=== PATIENT | male | born 1940 | race Caucasian/White ===

== ENCOUNTER 2017-11-26 16:52 | Observation (INO) ==
--- NOTE | 2017-11-26 18:08 | ED ---
HPI General Chief complaint: Chest Pain Stated complaint: Chest Pain Time Seen by Provider: 11/26/17 17:40 History of Present Illness HPI narrative: This is a 76-year-old male who presents via EMS for evaluation of chest pain. He reports that he has had left proximal arm pain for the past 2 -3 days. Today at 3 PM he was cleaning his air conditioner when he developed a substernal chest tightness, nausea, dizziness and diaphoresis. Symptoms lasted for approximately 30 minutes, resolved after paramedics provided him with 324 mg of aspirin and 2 sublingual nitro. currently asymptomatic in regards to the chest pain. He does report that he has had some intermittent diarrhea for the past few weeks and some crampy lower abdominal pain. He does have a history of diverticulosis. He reports that he had one episode today of bright red blood per rectum when he was wiping with his toilet paper. He denies fevers, chills. Symptoms are mild to moderate. He reports that he had a normal cardiac catheterization 6 years ago in [place]. He was scheduled to have a stress test 3 years ago but he canceled it. No other complaints at this time. Related Data Home Medications Medication Instructions Recorded Confirmed alprazolam [Xanax] 0.5 mg PO HS 11/26/17 11/26/17 aspirin 81 mg PO DAILY 11/26/17 11/26/17 carvedilol [Coreg] 6.25 mg PO BID 11/26/17 11/26/17 omega 1-fhl-aoc-fish oil [Fish Oil] 2 cap PO BID 11/26/17 11/26/17 Allergies Allergy/AdvReac Type Severity Reaction Status Date / Time sulfamethoxazole Allergy allergy Verified 11/26/17 17:50 [From Bactrim] trimethoprim [From Bactrim] Allergy allergy Verified 11/26/17 17:50 Review of Systems ROS: all other systems reviewed are negative [facility] Medical History Medical History Patient denies medical problems (Acute) Surgical History Surgical History No history of previous surgery (Acute) Social History Social History Substance History: No History of Abuse Second Hand Smoke Exposure: No Smoking Status: Former smoker How Often Do You Have a Drink Containing Alcohol: Never Recent Travel in [facility] within the Last 8 Weeks: No Recent Out of Country Travel within the Last 8 Weeks: No Immunization History Tetanus Immunization: >5 Years Exam Narrative Exam Narrative: GENERAL: Pleasant well-developed well-nourished male no acute distress SKIN: Warm and dry. HEAD: Atraumatic. Normocephalic. EYES: Pupils equal and round. No scleral icterus. No injection or drainage. ENT: No nasal bleeding or discharge. Mucous membranes pink and moist. NECK: Trachea midline. No JVD. CARDIOVASCULAR: Regular rate and rhythm. No murmur appreciated. RESPIRATORY: No accessory muscle use. Clear to auscultation. Breath sounds equal bilaterally. GASTROINTESTINAL: Abdomen soft, to palpation in the lower quadrants without guarding. Rectal examination reveals no evidence of external hemorrhoid. He does have faintly Hemoccult positive mucousy stool. MUSCULOSKELETAL: No obvious deformities. No clubbing. No cyanosis. No edema. NEUROLOGICAL: Awake and alert. No obvious cranial nerve deficits. Motor grossly within normal limits. Normal speech. Procedures Hemaprompt Stool Procedural Steps Taken: specimen placed in appropriate test area, developer placed on specimen and control areas and controls appropriately positive and negative Hemaprompt Stool Result: positive Course Initial Documented Vital Signs Temperature 98.1 F 11/26/17 17:36 Pulse Rate 73 11/26/17 17:36 Respiratory Rate 18 11/26/17 17:36 Blood Pressure 126/64 11/26/17 17:36 Pulse Oximetry 97 11/26/17 17:36 Last Documented Vital Signs Temperature 98.1 F 11/26/17 17:36 Pulse Rate 69 11/26/17 18:46 Respiratory Rate 18 11/26/17 18:46 Blood Pressure 130/69 11/26/17 18:46 Pulse Oximetry 98 11/26/17 18:46 Clinical Decision Support HEART Score Questions History: Moderately suspicious EKG: Non-specific repolarization disturbance Age: 65 years+ Risk Factors: 3 or more Risk Factors or Hx of Atherosclerotic Disease Initial Troponin: Normal Limit Heart Score HEART Score: 6 Medical Decision Making SHANNA Attestation SHANNA supervised visit: Yes Attestation: I was present with the advanced practitioner during the management of this patient. I discussed the case with the advanced practitioner and agree with the findings and plan as documented in their note except as noted below. 76yM brought in by EMS for chest pain. The patient reports that he's been having "aching" left upper arm pain for the past 3 days, but this afternoon began to have substernal chest "pressure" as well, associated with dizziness, diaphoresis, nausea, and shortness of breath. He also reports diarrhea and "cramping" lower abdominal pain x several weeks, noted some blood after moving his bowels this morning. He has a history of diverticulitis, HTN, dyslipidemia, and extensive former smoking history. Family history is significant for father and brother with fatal MIs in their late 40s/ early 50s. He had a cardiac cath in [place] 6 years ago (no intervention) and reports that he was supposed to have a stress test 3 years ago but did not follow up. He has no significant abnormalities on exam. He is guaiac (+). Plan is to check labs, CT abd/ pelvis, CXR/ X-ray left arm, and likely chest pain center vs hospitalist obs depending on results. [facility] Narrative Medical decision making narrative: The patient was placed on ECG monitoring pulse oximetry. A 12 EKG was obtained. Lab work, chest x-ray, CT abdomen pelvis ordered. Lab work and imaging studies have been reviewed. CT abdomen pelvis reveals no acute abnormalities. Hemoccult was positive. At this point time the plan will be to admit the patient for further evaluation of chest pain and GI bleed. He is agreeable. Medical Screen Exam Complete: Yes Emergency Medical Condition: Yes Differential Diagnosis Differential Diagnosis: Angina, acute coronary syndrome, pneumothorax, pericarditis, myocarditis, aortic dissection, colitis, internal hemorrhoid, diverticulitis, anal fissure Lab Data Result diagrams: 11/26/17 18:05 11/26/17 18:05 Lab Results 11/26/17 11/26/17 11/26/17 Range/Units 17:38 18:05 18:05 WBC 7.4 (4.0-11.0) th/mm3 RBC 4.32 L (4.50-5.90) mil/mm3 Hgb 12.8 L (13.0-17.0) gm/dL Hct 37.8 L (39.0-51.0) % MCV 87.5 (80.0-100.0) fL MCH 29.5 (27.0-34.0) pg MCHC 33.7 (32.0-36.0) % RDW 14.3 (11.6-17.2) % Plt Count 283 (150-450) th/mm3 MPV 7.4 (7.0-11.0) fL Neut % (Auto) 63.8 (16.0-70.0) % Lymph % (Auto) 19.0 (9.0-44.0) % Cameron % (Auto) 9.4 H (0.0-8.0) % Eos % (Auto) 6.9 H (0.0-4.0) % Baso % (Auto) 0.9 (0.0-2.0) % Neut # (Auto) 4.7 (1.8-7.7) th/mm3 Lymph # (Auto) 1.4 (1.0-4.8) th/mm3 Cameron # (Auto) 0.7 (0.0-0.9) th/mm3 Eos # (Auto) 0.5 H (0.0-0.4) th/mm3 Baso # (Auto) 0.1 (0.0-0.2) th/mm3 WBC Differential . Differential Comment Auto diff final PT (9.8-11.6) sec INR Ratio APTT (24.3-30.1) sec Sodium 139 (136-145) meq/L Potassium 4.3 (3.5-5.1) meq/L Chloride 103 (98-107) meq/L Carbon Dioxide 29.8 (21.0-32.0) meq/L Anion Gap 6 (5-15) meq/L BUN 16 (7-18) mg/dL Creatinine 1.04 (0.60-1.30) mg/dL Estimated GFR 69 L (>89) mL/min Random Glucose 93 (74-106) mg/dL Calcium 9.1 (8.5-10.1) mg/dL Magnesium 2.0 (1.5-2.5) mg/dL Total Bilirubin 0.3 (0.2-1.0) mg/dL AST 28 (15-37) U/L ALT 24 (12-78) U/L Alkaline Phosphatase 81 (45-117) U/L Total Creatine Kinase 158 (39-308) U/L CK-MB (CK-2) 2.6 (0.5-3.6) ng/mL Troponin I Less than 0.02 L (0.02-0.05) ng/mL Total Protein 7.2 (6.4-8.2) g/dL Albumin 3.6 (3.4-5.0) g/dL Urine Color Yellow (Yellw/Straw) Urine Clarity Hazy H (Clear) Urine pH 7.0 (5.0-8.5) Ur Specific [place] 1.016 (1.002-1.035) Urine Protein Negative (Neg-Trace) mg/dL Urine Glucose (UA) Negative (Negative) mg/dL Urine Ketones Trace H (Negative) mg/dL Urine Occult Blood Small H (Negative) Urine Nitrate Negative (Negative) Urine Bilirubin Negative (Negative) Urine Urobilinogen Less than 2 (Less than 2) mg/dL Ur Leukocyte Esterase Negative (Negative) Urine RBC 15 H (0-3) /hpf Urine WBC 3 (0-5) /hpf Micro UA Comment Culture not ind Ur Microscopic Review Not Reportable Urine Culture Comments Culture not ind 11/26/17 Range/Units 18:05 WBC (4.0-11.0) th/mm3 RBC (4.50-5.90) mil/mm3 Hgb (13.0-17.0) gm/dL Hct (39.0-51.0) % MCV (80.0-100.0) fL MCH (27.0-34.0) pg MCHC (32.0-36.0) % RDW (11.6-17.2) % Plt Count (150-450) th/mm3 MPV (7.0-11.0) fL Neut % (Auto) (16.0-70.0) % Lymph % (Auto) (9.0-44.0) % Cameron % (Auto) (0.0-8.0) % Eos % (Auto) (0.0-4.0) % Baso % (Auto) (0.0-2.0) % Neut # (Auto) (1.8-7.7) th/mm3 Lymph # (Auto) (1.0-4.8) th/mm3 Cameron # (Auto) (0.0-0.9) th/mm3 Eos # (Auto) (0.0-0.4) th/mm3 Baso # (Auto) (0.0-0.2) th/mm3 WBC Differential Differential Comment PT 10.0 (9.8-11.6) sec INR 1.0 Ratio APTT 26.3 (24.3-30.1) sec Sodium (136-145) meq/L Potassium (3.5-5.1) meq/L Chloride (98-107) meq/L Carbon Dioxide (21.0-32.0) meq/L Anion Gap (5-15) meq/L BUN (7-18) mg/dL Creatinine (0.60-1.30) mg/dL Estimated GFR (>89) mL/min Random Glucose (74-106) mg/dL Calcium (8.5-10.1) mg/dL Magnesium (1.5-2.5) mg/dL Total Bilirubin (0.2-1.0) mg/dL AST (15-37) U/L ALT (12-78) U/L Alkaline Phosphatase (45-117) U/L Total Creatine Kinase (39-308) U/L CK-MB (CK-2) (0.5-3.6) ng/mL Troponin I (0.02-0.05) ng/mL Total Protein (6.4-8.2) g/dL Albumin (3.4-5.0) g/dL Urine Color (Yellw/Straw) Urine Clarity (Clear) Urine pH (5.0-8.5) Ur Specific [place] (1.002-1.035) Urine Protein (Neg-Trace) mg/dL Urine Glucose (UA) (Negative) mg/dL Urine Ketones (Negative) mg/dL Urine Occult Blood (Negative) Urine Nitrate (Negative) Urine Bilirubin (Negative) Urine Urobilinogen (Less than 2) mg/dL Ur Leukocyte Esterase (Negative) Urine RBC (0-3) /hpf Urine WBC (0-5) /hpf Micro UA Comment Ur Microscopic Review Urine Culture Comments Imaging Data Radiologist's impression: Chest X-Ray 11/26/17 17:50 CONCLUSION: 1. Hyperinflation with no acute infiltrate. 2. 1.3 cm nodular density projecting just to the left of the heart border I believe represents a nipple shadow. Repeat images of the chest with nipple markers could be performed for confirmation if clinically warranted. 3. Stable degenerative spurring of the dorsal spine. Humerus X-Ray 11/26/17 17:50 CONCLUSION: No evidence of recent bony injury. Abdomen/Pelvis CT 11/26/17 18:00 CONCLUSION: 1. No acute CT abnormality in the abdomen or pelvis. 2. Mild sigmoid diverticulosis without definitive evidence for diverticulitis. 3. 1 cm nonobstructing calyceal calculus in the inferior pole of the left kidney. 4. Multiple bilateral subcentimeter hypodense cystic lesions in the kidneys which are too small to fully characterize. 5. Small fat-containing periumbilical hernia. 6. 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 ECG Data Attestation: I personally reviewed and interpreted this ECG as follows: Interpretation: Rate: 63 BPM Rhythm: Sinus [place]: Normal Intervals: Normal intervals, no blocks, QTc 370 ms Q waves: III, aVF T waves: Upright, no inversions ST segments: No elevations or depressions Impression: Non-specific EKG, inferior wall Q waves, no previous EKG available for comparison. Discharge Plan Discharge Disposition Patient Disposition: 30 Still Patient Discharge Condition Condition: Stable Discharge Details Diagnosis: Chest pain, GI bleed Physicians Team ED Provider: Cheri López ED Midlevel Provider: Adolph Monique Primary Care Provider: Ryne Vallecillo Attending Provider: Mckenna Mccray Status ED Status: Admitted Observation Patient
--- NOTE | 2017-11-26 18:44 | XR ---
EXAM DATE: 11/26/2017 5:50 PM EDT AGE/SEX: 76 years / Male INDICATIONS: Left humerus pain with no known injury. CLINICAL DATA: This is the patient's initial encounter. Patient reports that signs and symptoms have been present for 3 days and indicates a pain score of 6/10. MEDICAL/SURGICAL HISTORY: None. None. COMPARISON: No prior exams available for comparison. FINDINGS: Bony structures are intact and in normal alignment. Osseous density is normal. Soft tissues are unre markable. No radiopaque foreign bodies seen. CONCLUSION: No evidence of recent bony injury. Electronically signed by: Mikael Howard MD 11/26/2017 6:43 PM EDT
--- NOTE | 2017-11-26 18:52 | XR ---
EXAM DATE: 11/26/2017 5:50 PM EDT AGE/SEX: 76 years / Male INDICATIONS: Chest pain and short of breath. CLINICAL DATA: This is the patient's initial encounter. Patient reports that signs and symptoms have been present for 3 days and indicates a pain score of 1/10. MEDICAL/SURGICAL HISTORY: None. Coronary artery stent. COMPARISON: POI, XR CHEST PA AND LAT, 10/20/2014. . FINDINGS: A single AP view of the chest demonstrates the lungs to be symmetrically hyper aerated without eviden ce of infiltrate or effusion. Questionable 1.3 cm nodular density projecting just to the left of the heart border may represent an asymmetric nipple shadow. I believe this is faintly identified previou sly. The cardiomediastinal contours are unremarkable. Osseous structures are intact with some degene rative spurring of the dorsal spine. CONCLUSION: 1. Hyperinflation with no acute infiltrate. 2. 1.3 cm nodular density projecting just to the left of the heart border I believe represents a nip ple shadow. Repeat images of the chest with nipple markers could be performed for confirmation if cli nically warranted. 3. Stable degenerative spurring of the dorsal spine. Electronically signed by: Mikael Howard MD 11/26/2017 6:51 PM EDT
[2017-11-26 18:56] LABS: Baso # (Auto) 0.1 th/mm3 (0.0-0.2); Baso % (Auto) 0.9 % (0.0-2.0); Eos # (Auto) 0.5 th/mm3 (0.0-0.4); Eos % (Auto) 6.9 % (0.0-4.0); Hematocrit 37.8 % (39.0-51.0); Hemoglobin 12.8 gm/dL (13.0-17.0); Lymph # (Auto) 1.4 th/mm3 (1.0-4.8); Mean Corpuscular HGB Conc 33.7 % (32.0-36.0); Mean Corpuscular Hemoglobin 29.5 pg (27.0-34.0); Mean Corpuscular Volume 87.5 fL (80.0-100.0); Mean Platelet Volume 7.4 fL (7.0-11.0); Mono # (Auto) 0.7 th/mm3 (0.0-0.9); Mono % (Auto) 9.4 % (0.0-8.0); Neut # (Auto) 4.7 th/mm3 (1.8-7.7); Neut % (Auto) 63.8 % (16.0-70.0); Platelet Count 283 th/mm3 (150-450); Red Blood Count 4.32 mil/mm3 (4.50-5.90); Red Cell Distribution Width 14.3 % (11.6-17.2); White Blood Count 7.4 th/mm3 (4.0-11.0)
[2017-11-26 19:12] LABS: Activated Partial Thrombo Time 26.3 sec (24.3-30.1)
[2017-11-26 19:16] LABS: Alanine Aminotransferase 24 U/L (12-78)
[2017-11-26 19:20] LABS: Alkaline Phosphatase 81 U/L (45-117); Creatine Kinase 158 U/L (39-308); Total Protein 7.2 g/dL (6.4-8.2)
[2017-11-26 19:25] LABS: Bilirubin,Urine Negative (Negative); Clarity,Urine Hazy (Clear); Color,Urine Yellow (Yellw/Straw); Glucose,Urine (UA) Negative (Negative); Leukocyte Esterase,Urine Negative (Negative); Nitrite,Urine Negative (Negative); Specific Gravity,Urine 1.016 (1.002-1.035)
[2017-11-26 19:32] LABS: Creatine Kinase MB 2.6 ng/mL (0.5-3.6)
[2017-11-26 19:40] LABS: Albumin 3.6 g/dL (3.4-5.0); Anion Gap 6 meq/L (5-15); Aspartate Aminotransferase 28 U/L (15-37); Blood Urea Nitrogen 16 mg/dL (7-18); Calcium 9.1 mg/dL (8.5-10.1); Carbon Dioxide 29.8 meq/L (21.0-32.0); Chloride 103 meq/L (98-107); Glomerular Filtration Rate 69 mL/min (>89); Glucose,Random 93 mg/dL (74-106); Potassium 4.3 meq/L (3.5-5.1); Sodium 139 meq/L (136-145)
--- NOTE | 2017-11-26 20:53 | CT ---
EXAM DATE: 11/26/2017 7:49 PM EDT AGE/SEX: 76 years / Male INDICATIONS: Left lower abdomen pain today. CLINICAL DATA: This is the patient's initial encounter. Patient reports that signs and symptoms have been present for 1 day and indicates a pain score of 5/10. MEDICAL/SURGICAL HISTORY: Diverticulosis. None. ORAL CONTRAST: No oral contrast ingested. RADIATION DOSE: 8.45 CTDI (mGy) COMPARISON: No prior exams available for comparison. TECHNIQUE: Multiple contiguous axial images were obtained through the abdomen and pelvis following b olus infusion of 98 ml Omnipaque 350 (iohexol) nonionic water-soluble contrast as a single exam dos e. No oral contrast ingested. Using automated exposure control and adjustment of the mA and/or kV ac cording to patient size, radiation dose was kept as low as reasonably achievable to obtain optimal di agnostic quality images. DICOM format image data is available electronically for review and comparis on. FINDINGS: LOWER LUNGS: Minimal bibasal atelectasis/scarring. LIVER: The liver has a homogeneous density without space-occupying lesion. There is no dilation of t he biliary tree. SPLEEN: Homogeneous density without enlargement. PANCREAS: Unremarkable without mass or calcification. KIDNEYS: Kidneys demonstrate symmetrical enhancement. There are small subcentimeter bilateral hypode nse cystic lesions which are too small to fully characterize. There is a 1.5 cm cyst in the posterior inferior pole the right kidney. There is a 1 cm calyceal calculus in the inferior pole the left kidn ey. There is no hydronephrosis. ADRENAL GLANDS: Unremarkable. AORTA: Yovana-aneurysmal. BOWEL/MESENTERY: Mild sigmoid diverticulosis without significant inflammatory change to suggest dive rticulitis. Bowel otherwise appears unremarkable. No dilated loops of bowel. No free fluid or drainab le fluid collections. No pneumatosis or free air. ABDOMINAL WALL: Very small fat-containing periumbilical hernia. RETROPERITONEUM: No evidence of adenopathy in the retrocrural, para-aortic, or deep pelvic regions. BLADDER: Contours are smooth. REPRODUCTIVE: No abnormal masses or calcifications seen. BONY STRUCTURES: Multilevel degenerative spondylosis of the lower lumbar spine. CONCLUSION: 1. No acute CT abnormality in the abdomen or pelvis. 2. Mild sigmoid diverticulosis without definitive evidence for diverticulitis. 3. 1 cm nonobstructing calyceal calculus in the inferior pole of the left kidney. 4. Multiple bilateral subcentimeter hypodense cystic lesions in the kidneys which are too small to f ully characterize. 5. Small fat-containing periumbilical hernia. 6. 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 Electronically signed by: Damon Reynolds MD 11/26/2017 8:52 PM EDT
--- NOTE | 2017-11-26 22:29 | P.HP ---
History of Present Illness Service: [facility] Primary Care Physician: Ryne Vallecillo MD History of Present Illness: 76-year-old male with a past medical history significant for diverticulosis, IBS and history of melanoma presents to the emergency department for evaluation of chest pain. The patient reports that for the past 3 days he has had left upper extremity pain and this afternoon while he was doing chores he noted a chest tightness with associated nausea and dizziness. He describes the chest tightness is substernal and he states it felt as though he had a "mainspring fabrication supervisor the middle of his chest." The patient also complains of bright red blood per rectum this morning and was Hemoccult positive in the ED. He has a history of chronic hemorrhoids and believes this is where the blood is coming from. The patient denies any shortness of breath. No lateralizing signs/symptoms. No fever/chills. Review of Systems All other systems reviewed negative except as stated in HPI PMFSH - History History Provided By: Patient - Medical History Medical History: Medical History (Last Updated 11/26/17 @ 22:24 by Mckenna Mccray MD) Diverticulosis History of melanoma Irritable bowel syndrome - Surgical History Surgical History: Surgical History (Last Updated 11/26/17 @ 22:24 by Mckenna Mccray MD) History of cardiac catheterization - Family History Family History: Family History (Last Updated 11/26/17 @ 22:24 by Mckenna Mccray MD) Other Coronary artery disease - Tobacco History Second Hand Smoke Exposure: No Smoking Status: Former smoker - Alcohol History How Often Do You Have a Drink Containing Alcohol: Never - Substance Use History Substance History: No History of Abuse - Travel History Recent Travel in the [place] Within the Last 8 Weeks: No Recent Travel Out of the Country Within the Last 8 Weeks: No - Immunization History Tetanus Immunization: >5 Years Medications and Allergies Active Medications: Active Medications Alprazolam (Xanax) 0.5 mg PO HS DEEPIKA Aspirin (Aspirin Chew) 81 mg PO DAILY DEEPIKA Carvedilol (Coreg) 6.25 mg PO BID DEEPIKA Ondansetron HCl (Zofran Inj) 4 mg IV.PUSH Q6H PRN PRN Reason: NAUSEA OR VOMITING Pantoprazole Sodium (Protonix Inj) 40 mg IV.PUSH Q12H DEEPIKA Sodium Chloride (Ns Flush) 2 ml IV.FLUSH UNSCH PRN PRN Reason: FLUSH AFTER USING IV ACCESS Allergies Allergy/AdvReac Type Severity Reaction Status Date / Time sulfamethoxazole Allergy allergy Verified 11/26/17 17:50 [From Bactrim] trimethoprim [From Bactrim] Allergy allergy Verified 11/26/17 17:50 Home Medications Medication Instructions Recorded Confirmed Type alprazolam [Xanax] 0.5 mg PO HS 11/26/17 11/26/17 History aspirin 81 mg PO DAILY 11/26/17 11/26/17 History carvedilol [Coreg] 6.25 mg PO BID 11/26/17 11/26/17 History omega 6-lnt-utt-fish oil [Fish Oil] 2 cap PO BID 11/26/17 11/26/17 History Exam Vital signs: Vital Signs 11/26/17 17:36 11/26/17 17:56 11/26/17 18:46 Temperature 98.1 F Pulse Rate 73 65 69 Respiratory Rate 18 18 Blood Pressure 126/64 130/69 Pulse Oximetry 97 97 98 Intake & Output 11/26/17 11/26/17 11/27/17 06:59 18:59 06:59 Weight 79.379 kg Narrative: Gen.: No acute distress Head: Normocephalic. Atraumatic. EENT: Pupils equal round and reactive to light. Nose without drainage. Airway intact. Throat without injection. Cardiovascular: Regular rate and rhythm. No murmurs, rubs or gallops. Respiratory: Lungs clear to auscultation bilaterally. No wheezes or rhonchi. Abdomen: Soft, nontender, nondistended. No peritoneal signs. Musculoskeletal: No gross deformities. No edema. Skin: No obvious rashes or erythema. Neuro: Sensory and motor grossly intact. Cranial nerves II through XII grossly intact. Results - Labs CBC & Chem 7: 11/26/17 18:05 11/26/17 18:05 Labs: Laboratory Results - last 24 hr 11/26/17 11/26/17 11/26/17 17:38 18:05 18:05 WBC 7.4 RBC 4.32 L Hgb 12.8 L Hct 37.8 L MCV 87.5 MCH 29.5 MCHC 33.7 RDW 14.3 Plt Count 283 MPV 7.4 Neut % (Auto) 63.8 Lymph % (Auto) 19.0 [place] % (Auto) 9.4 H Eos % (Auto) 6.9 H Baso % (Auto) 0.9 Neut # (Auto) 4.7 Lymph # (Auto) 1.4 [place] # (Auto) 0.7 Eos # (Auto) 0.5 H Baso # (Auto) 0.1 WBC Differential . Differential Comment Auto diff final PT INR APTT Sodium 139 Potassium 4.3 Chloride 103 Carbon Dioxide 29.8 Anion Gap 6 BUN 16 Creatinine 1.04 Estimated GFR 69 L Random Glucose 93 Calcium 9.1 Magnesium 2.0 Total Bilirubin 0.3 AST 28 ALT 24 Alkaline Phosphatase 81 Total Creatine Kinase 158 CK-MB (CK-2) 2.6 Troponin I Less than 0.02 L Total Protein 7.2 Albumin 3.6 Urine Color Yellow Urine Clarity Hazy H Urine pH 7.0 Ur Specific [place] 1.016 Urine Protein Negative Urine Glucose (UA) Negative Urine Ketones Trace H Urine Occult Blood Small H Urine Nitrate Negative Urine Bilirubin Negative Urine Urobilinogen Less than 2 Ur Leukocyte Esterase Negative Urine RBC 15 H Urine WBC 3 Micro UA Comment Culture not ind Ur Microscopic Review Not Reportable Urine Culture Comments Culture not ind 11/26/17 18:05 WBC RBC Hgb Hct MCV MCH MCHC RDW Plt Count MPV Neut % (Auto) Lymph % (Auto) [place] % (Auto) Eos % (Auto) Baso % (Auto) Neut # (Auto) Lymph # (Auto) [place] # (Auto) Eos # (Auto) Baso # (Auto) WBC Differential Differential Comment PT 10.0 INR 1.0 APTT 26.3 Sodium Potassium Chloride Carbon Dioxide Anion Gap BUN Creatinine Estimated GFR Random Glucose Calcium Magnesium Total Bilirubin AST ALT Alkaline Phosphatase Total Creatine Kinase CK-MB (CK-2) Troponin I Total Protein Albumin Urine Color Urine Clarity Urine pH Ur Specific [place] Urine Protein Urine Glucose (UA) Urine Ketones Urine Occult Blood Urine Nitrate Urine Bilirubin Urine Urobilinogen Ur Leukocyte Esterase Urine RBC Urine WBC Micro UA Comment Ur Microscopic Review Urine Culture Comments - Imaging Impressions Chest X-Ray 11/26/17 17:50 CONCLUSION: 1. Hyperinflation with no acute infiltrate. 2. 1.3 cm nodular density projecting just to the left of the heart border I believe represents a nipple shadow. Repeat images of the chest with nipple markers could be performed for confirmation if clinically warranted. 3. Stable degenerative spurring of the dorsal spine. Humerus X-Ray 11/26/17 17:50 CONCLUSION: No evidence of recent bony injury. Abdomen/Pelvis CT 11/26/17 18:00 CONCLUSION: 1. No acute CT abnormality in the abdomen or pelvis. 2. Mild sigmoid diverticulosis without definitive evidence for diverticulitis. 3. 1 cm nonobstructing calyceal calculus in the inferior pole of the left kidney. 4. Multiple bilateral subcentimeter hypodense cystic lesions in the kidneys which are too small to fully characterize. 5. Small fat-containing periumbilical hernia. 6. 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 Caprini VTE Risk Assessment Caprini VTE Risk Assessment: Moderate/High Risk (score >= 2) Caprini Risk Assessment Model: Point Value = 1 Point Value = 2 Point Value = 3 Point Value = 5 Age 41-60 Minor surgery BMI > 25 kg/m2 Swollen legs Varicose veins or History of unexplained or recurrent spontaneous Oral contraceptives or hormone replacement Sepsis (< 1 month) Serious lung disease, including pneumonia (< 1 month) Abnormal pulmonary function Acute myocardial infarction Congestive heart failure (< 1 month) History of inflammatory bowel disease Medical patient at bed rest Age 61-74 Arthroscopic surgery Major open surgery (> 45 min) Laparoscopic surgery (> 45 min) Malignancy Confined to bed (> 72 hours) Immobilizing plaster cast Central venous access Age >= 75 History of VTE Family history of VTE Factor V Leiden Prothrombin [id number] Lupus anticoagulant Anticardiolipin antibodies Elevated serum homocysteine Heparin-induced thrombocytopenia Other congenital or acquired thrombophilia Stroke (< 1 month) Elective arthroplasty Hip, pelvis, or leg fracture Acute spinal cord injury (< 1 month) Prophylaxis Regimen: Total Risk Factor Score Risk Level Prophylaxis Regimen 0-1 Low Early ambulation 2 Moderate Order ONE of the following: *Sequential Compression Device (SCD) *Heparin 5000 units SQ BID 3-4 Higher Order ONE of the following medications: *Heparin 5000 units SQ TID *Enoxaparin/Lovenox 40 mg SQ daily (WT < 150 kg, CrCl > 30 mL/min) *Enoxaparin/Lovenox 30 mg SQ daily (WT < 150 kg, CrCl > 10-29 mL/min) *Enoxaparin/Lovenox 30 mg SQ BID (WT < 150 kg, CrCl > 30 mL/min) AND/OR *Sequential Compression Device (SCD) 5 or more Highest Order ONE of the following medications: *Heparin 5000 units SQ TID (Preferred with Epidurals) *Enoxaparin/Lovenox 40 mg SQ daily (WT < 150 kg, CrCl > 30 mL/min) *Enoxaparin/Lovenox 30 mg SQ daily (WT < 150 kg, CrCl > 10-29 mL/min) *Enoxaparin/Lovenox 30 mg SQ BID (WT < 150 kg, CrCl > 30 mL/min) AND *Sequential Compression Device (SCD) Assessment and Plan - Plan Assessment/plan: 1. Chest pain Chest x-ray showed normal sinus rhythm, pulse 63, without ST segment elevation or depression, personally reviewed Initial troponin negative ACS rule out pending; serial troponins/EKGs 2. Bright red blood per rectum Patient with history of hemorrhoids and diverticulosis H&H of 0.8/37.8 Serial H&H IV Protonix If hemoglobin stays stable, recommend outpatient GI follow-up FEN N.p.o. Electrolytes: Monitor and replete as needed NS at 100 cc/hour Heparin
[2017-11-26] MEDS: Pantoprazole Inj 40 MG Vial IV.PUSH SCH (22:43)
[2017-11-26] MEDS: Sod Chloride 0.9% Inj 1,000 ML IV.CONT SCH (22:44)
[2017-11-26 23:53] LABS: Hematocrit 35.6 % (39.0-51.0); Hemoglobin 12.1 gm/dL (13.0-17.0)
[2017-11-27 00:22] LABS: Creatine Kinase 133 U/L (39-308)
[2017-11-27] MEDS ORDERED: Heparin - SQ 10,000 UNITS/ML Vial SQ SCH (06:00)
[2017-11-27 07:32] LABS: Baso # (Auto) 0.1 th/mm3 (0.0-0.2); Eos # (Auto) 0.6 th/mm3 (0.0-0.4); Eos % (Auto) 10.1 % (0.0-4.0); Hematocrit 43.3 % (39.0-51.0); Hemoglobin 14.3 gm/dL (13.0-17.0); Lymph # (Auto) 1.5 th/mm3 (1.0-4.8); Lymph % (Auto) 26.6 % (9.0-44.0); Mean Corpuscular HGB Conc 33.1 % (32.0-36.0); Mean Corpuscular Hemoglobin 29.3 pg (27.0-34.0); Mean Corpuscular Volume 88.5 fL (80.0-100.0); Mean Platelet Volume 7.3 fL (7.0-11.0); Mono # (Auto) 0.7 th/mm3 (0.0-0.9); Mono % (Auto) 12.5 % (0.0-8.0); Neut # (Auto) 2.9 th/mm3 (1.8-7.7); Neut % (Auto) 49.8 % (16.0-70.0); Platelet Count 281 th/mm3 (150-450); Red Blood Count 4.89 mil/mm3 (4.50-5.90); Red Cell Distribution Width 13.9 % (11.6-17.2); White Blood Count 5.8 th/mm3 (4.0-11.0)
[2017-11-27 07:56] LABS: Anion Gap 6 meq/L (5-15); Blood Urea Nitrogen 13 mg/dL (7-18); Calcium 9.4 mg/dL (8.5-10.1); Chloride 103 meq/L (98-107); Glomerular Filtration Rate 69 mL/min (>89); Glucose,Random 72 mg/dL (74-106); Potassium 4.3 meq/L (3.5-5.1); Sodium 138 meq/L (136-145)
[2017-11-27 08:01] LABS: Creatine Kinase 159 U/L (39-308)
[2017-11-27] MEDS: Sod Chloride 0.9% Inj 1,000 ML IV.CONT SCH (08:46)
[2017-11-27] MEDS ORDERED: Carvedilol 6.25 MG Tablet PO SCH (09:00)
[2017-11-27] MEDS ORDERED: Senna/Docusate Sodium 8.6/50 MG Tablet PO SCH (09:00)
--- NOTE | 2017-11-27 09:03 | P.PN ---
Subjective Interval history: Follow-up on patient with chest pain. Patient seen and examined. Patient denies any recurrence of chest pain. He denies any nausea, vomiting or abdominal pain. He denies any headache or dizziness. Patient underwent Lexiscan results earlier this morning. Discussed results with patient. Recommended echocardiogram study and possibly cardiology consultation. Patient does not want to stay in the hospital. He follows closely with his primary care physician and states that he will follow-up as an outpatient to have the echocardiogram done. Also recommended he follow-up with heel seam rubber as an outpatient. Physical Exam Vital signs: Vital Signs 11/26/17 17:36 11/26/17 17:56 11/26/17 18:46 Temperature 98.1 F Pulse Rate 73 65 69 Respiratory Rate 18 18 Blood Pressure 126/64 130/69 Pulse Oximetry 97 97 98 11/27/17 00:00 11/27/17 04:00 11/27/17 07:38 Temperature 98.1 F 98.6 F 98.0 F Pulse Rate 66 58 L 65 Respiratory Rate 16 16 16 Blood Pressure 138/62 129/78 138/73 Pulse Oximetry 98 99 97 Intake & Output 11/26/17 11/27/17 11/27/17 18:59 06:59 18:59 Intake Total 900 / 900 Balance 900 / 900 Weight 79.379 kg 79.379 kg Intake: IV 900 / 900 NS Inj 1,000 ML @ 100 mls/hr IV 900 / 900 .CONT .Q10H [facility] Rx#:[id number] Other: # Voids 3 Date of Last Bowel Movement 11/26/17 Weight On Admission 79.379 kg Narrative: GENERAL: Well-developed well-nourished elderly male patient, in no acute distress. Awake and alert. SKIN: Warm and dry. No rash. HEENT: Atraumatic. Normocephalic. Pupils equal and round. No scleral icterus. No injection or drainage. No nasal bleeding or discharge. Mucous membranes pink and moist. NECK: Trachea midline. CARDIOVASCULAR: Regular rate and rhythm. RESPIRATORY: No accessory muscle use. Clear to auscultation. Breath sounds equal bilaterally. GASTROINTESTINAL: Abdomen soft, non-tender, nondistended. +BS. MUSCULOSKELETAL: Extremities without clubbing, cyanosis, or edema. +bilateral knee varus deformities. NEUROLOGICAL: Awake and alert. No obvious cranial nerve deficits. Motor grossly within normal limits. Able to move all extremities spontaneously. Normal speech. PSYCHIATRIC: Appropriate mood and affect; insight and judgment normal. Results - Labs CBC & Chem 7: 11/27/17 11:47 11/27/17 05:45 Laboratory Results - last 24 hr 11/26/17 11/26/17 11/26/17 17:38 18:05 18:05 WBC 7.4 RBC 4.32 L Hgb 12.8 L Hct 37.8 L MCV 87.5 MCH 29.5 MCHC 33.7 RDW 14.3 Plt Count 283 MPV 7.4 Neut % (Auto) 63.8 Lymph % (Auto) 19.0 [place] % (Auto) 9.4 H Eos % (Auto) 6.9 H Baso % (Auto) 0.9 Neut # (Auto) 4.7 Lymph # (Auto) 1.4 [place] # (Auto) 0.7 Eos # (Auto) 0.5 H Baso # (Auto) 0.1 WBC Differential . Differential Comment Auto diff final PT INR APTT Sodium 139 Potassium 4.3 Chloride 103 Carbon Dioxide 29.8 Anion Gap 6 BUN 16 Creatinine 1.04 Estimated GFR 69 L Random Glucose 93 Calcium 9.1 Magnesium 2.0 Total Bilirubin 0.3 AST 28 ALT 24 Alkaline Phosphatase 81 Total Creatine Kinase 158 CK-MB (CK-2) 2.6 Troponin I Less than 0.02 L Total Protein 7.2 Albumin 3.6 Urine Color Yellow Urine Clarity Hazy H Urine pH 7.0 Ur Specific [place] 1.016 Urine Protein Negative Urine Glucose (UA) Negative Urine Ketones Trace H Urine Occult Blood Small H Urine Nitrate Negative Urine Bilirubin Negative Urine Urobilinogen Less than 2 Ur Leukocyte Esterase Negative Urine RBC 15 H Urine WBC 3 Micro UA Comment Culture not ind Ur Microscopic Review Not Reportable Urine Culture Comments Culture not ind 11/26/17 11/26/17 11/26/17 18:05 23:35 23:35 WBC RBC Hgb 12.1 L Hct 35.6 L MCV MCH MCHC RDW Plt Count MPV Neut % (Auto) Lymph % (Auto) [place] % (Auto) Eos % (Auto) Baso % (Auto) Neut # (Auto) Lymph # (Auto) [place] # (Auto) Eos # (Auto) Baso # (Auto) WBC Differential Differential Comment PT 10.0 INR 1.0 APTT 26.3 Sodium Potassium Chloride Carbon Dioxide Anion Gap BUN Creatinine Estimated GFR Random Glucose Calcium Magnesium Total Bilirubin AST ALT Alkaline Phosphatase Total Creatine Kinase 133 CK-MB (CK-2) Troponin I Less than 0.02 L Total Protein Albumin Urine Color Urine Clarity Urine pH Ur Specific [place] Urine Protein Urine Glucose (UA) Urine Ketones Urine Occult Blood Urine Nitrate Urine Bilirubin Urine Urobilinogen Ur Leukocyte Esterase Urine RBC Urine WBC Micro UA Comment Ur Microscopic Review Urine Culture Comments 11/27/17 11/27/17 05:45 05:45 WBC 5.8 RBC 4.89 Hgb 14.3 D Hct 43.3 MCV 88.5 MCH 29.3 MCHC 33.1 RDW 13.9 Plt Count 281 MPV 7.3 Neut % (Auto) 49.8 Lymph % (Auto) 26.6 [place] % (Auto) 12.5 H Eos % (Auto) 10.1 H Baso % (Auto) 1.0 Neut # (Auto) 2.9 Lymph # (Auto) 1.5 [place] # (Auto) 0.7 Eos # (Auto) 0.6 H Baso # (Auto) 0.1 WBC Differential . Differential Comment Auto diff final PT INR APTT Sodium 138 Potassium 4.3 Chloride 103 Carbon Dioxide 29.0 Anion Gap 6 BUN 13 Creatinine 1.04 Estimated GFR 69 L Random Glucose 72 L Calcium 9.4 Magnesium Total Bilirubin AST ALT Alkaline Phosphatase Total Creatine Kinase 159 CK-MB (CK-2) Troponin I Less than 0.02 L Total Protein Albumin Urine Color Urine Clarity Urine pH Ur Specific [place] Urine Protein Urine Glucose (UA) Urine Ketones Urine Occult Blood Urine Nitrate Urine Bilirubin Urine Urobilinogen Ur Leukocyte Esterase Urine RBC Urine WBC Micro UA Comment Ur Microscopic Review Urine Culture Comments - Imaging Impressions Chest X-Ray 11/26/17 17:50 CONCLUSION: 1. Hyperinflation with no acute infiltrate. 2. 1.3 cm nodular density projecting just to the left of the heart border I believe represents a nipple shadow. Repeat images of the chest with nipple markers could be performed for confirmation if clinically warranted. 3. Stable degenerative spurring of the dorsal spine. Humerus X-Ray 11/26/17 17:50 CONCLUSION: No evidence of recent bony injury. Abdomen/Pelvis CT 11/26/17 18:00 CONCLUSION: 1. No acute CT abnormality in the abdomen or pelvis. 2. Mild sigmoid diverticulosis without definitive evidence for diverticulitis. 3. 1 cm nonobstructing calyceal calculus in the inferior pole of the left kidney. 4. Multiple bilateral subcentimeter hypodense cystic lesions in the kidneys which are too small to fully characterize. 5. Small fat-containing periumbilical hernia. 6. 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 Assessment and Plan - Assessment (1) Cardiac LV ejection fraction of 40-49% Code(s): R94.30 - Abnormal result of cardiovascular function study, unspecified Status: Acute (2) Chest pain Code(s): R07.9 - Chest pain, unspecified Status: Acute - Plan 76-year-old male with a past medical history significant for diverticulosis, IBS and history of melanoma presents to the emergency department for evaluation of chest pain. Chest pain EKG showed normal sinus rhythm, pulse 63, without ST segment elevation or depression troponin negative x 3 EKGs with no evidence of ischemia CXR without any acute findings 11/27 no complaints of chest pain Lexiscan done: Distribution: The maximum perfused segment at stress is in the posterior basal wall. Perfusion Study: Mildly diminished perfusion to the cardiac apex. No definite redistribution Gated Study: There are intact wall motion and wall thickening without hypokinetic or dyskinetic segments. The ejection fraction is calculated at 46% . RISK CATEGORY: Intermediate (1-3 % Annual Mortality Rate) CONCLUSION: 1. Borderline ejection fraction. 2. No reversible perfusion abnormalities Recommended echocardiogram and possible cardiology consultation. Patient states he does not want to stay to continue cardiac workup. He states that he follows closely with his primary care physician and has an appointment with him next week. He will discuss having an echocardiogram done during that appointment. Also discussed seeing a heel seam rubber as outpatient. Bright red blood per rectum Patient with history of hemorrhoids and diverticulosis H&H of 12.8/37.8 Serial H&H stable IV Protonix, change to po Protonix Recommend outpatient GI follow-up DVT prophylaxis bilateral SCDs/PA hose Discharge patient to home Condition on discharge: Improved Heart healthy Diet as tolerated Ad Stacia activity -patient evaluated by PT who recommended outpatient therapy however patient declined at this time. Rx written: Protonix, 2D echocardiogram Follow-up with primary care physician, heel seam rubber and paperhanger pipe Code Status: Full Discussed Condition With: patient, nursing staff, Dr. Kraus
[2017-11-27] MEDS ORDERED: Regadenoson Inj 0.4 MG/5 ML Syringe IV.PUSH ONE (10:45)
[2017-11-27] MEDS: Pantoprazole Inj 40 MG Vial IV.PUSH SCH (11:35)
--- NOTE | 2017-11-27 11:37 | NM ---
EXAM DATE: 11/27/2017 8:55 AM EDT AGE/SEX: 76 years / Male INDICATIONS:Angina. . Mid chest pain for three days. CLINICAL DATA: This is the patient's initial encounter. Patient reports that signs and symptoms have been present for 1 day and indicates a pain score of 5/10. MEDICAL/SURGICAL HISTORY: Irritable bowel syndrome. None. COMPARISON: No prior exams available for comparison. No external comparison. DOSE: 8.5 mCi Tc 99m Myoview at rest 27.2 mCi [id number] at stress 0.4 mg Lexiscan STRESS SYMPTOMS: Dyspnea, chest pain, and abdomen pain. EJECTION FRACTION: 46 % TECHNIQUE: The patient underwent pharmacologic stress with infusion of prescribed dose. Continuous ECG tracing was monitored during stress. Gated SPECT imaging was performed after stress and conventi onal SPECT imaging was performed at rest. The examination was performed on a SPECT/CT scanner, both attenuation and non-corrected datasets were reviewed. FINDINGS: Distribution: The maximum perfused segment at stress is in the posterior basal wall. Perfusion Study: Mildly diminished perfusion to the cardiac apex. No definite redistribution Gated Study: There are intact wall motion and wall thickening without hypokinetic or dyskinetic segm ents. The ejection fraction is calculated at 46%. RISK CATEGORY: Intermediate (1-3 % Annual Mortality Rate) CONCLUSION: 1. Borderline ejection fraction. 2. No reversible perfusion abnormalities Electronically signed by: Yimi Bell MD 11/27/2017 11:35 AM EDT
[2017-11-27 12:06] LABS: Hematocrit 40.6 % (39.0-51.0); Hemoglobin 13.5 gm/dL (13.0-17.0)
[2017-11-27] MEDS ORDERED: ALPRAZolam 0.5 MG Tablet PO SCH (21:00)
--- NOTE | 2017-11-29 01:25 | ECG ---
Date Performed: 11/27/2017 Time Performed: 05:58:17 PTAGE: 76 years EKG: SINUS BRADYCARDIA NONSPECIFIC ST & T-WAVE ABNORMALITY BORDERLINE ECG PREVIOUS TRACING : 11/27/2017 00.56 Since the previous tracing, no significant change noted DOCTOR: Raheem Rodriguez Interpretating Date/Time 11/29/2017 01:24:05
--- NOTE | 2017-11-29 01:31 | ECG ---
Date Performed: 11/27/2017 Time Performed: 00:56:23 PTAGE: 76 years EKG: Sinus rhythm NORMAL ECG PREVIOUS TRACING : 11/26/2017 18.06 Since the previous tracing, no significant change noted DOCTOR: Raheem Rodriguez Interpretating Date/Time 11/29/2017 01:29:28
--- NOTE | 2017-11-29 01:48 | ECG ---
Date Performed: 11/26/2017 Time Performed: 18:06:49 PTAGE: 76 years EKG: Sinus rhythm NORMAL ECG NO PREVIOUS TRACING DOCTOR: Raheem Rodriguez Interpretating Date/Time 11/29/2017 01:48:02
== END 2017-11-27 13:44 | disposition home or self-care (01) ==
LOC: NEPE 16:52 → NEDA 16:52 → NEPGCP 22:50
PROVIDERS: ADMIT Hospitalist; ATTEND Hospitalist